=== PATIENT | male | born 1995 | race Caucasian/White ===

== ENCOUNTER 2018-01-12 18:38 | Emergency (ER) | payer OTHER ==
[~2018-01-12] VITALS: Ht 165.1 cm; Wt 68.9 kg
[2018-01-12 18:48] VITALS: BP 132/65
--- NOTE | 2018-01-12 18:55 | NUR ---
pt to lobby in stable condition with mother
--- NOTE | 2018-01-12 19:20 | NUR ---
PATIENT PRESENTS TO ED WITH C/O DIZZINES, CP, +NAUSEA S/P INGESTION OF "EATABLE BROWNIE CONTAINING MARIJUANA" AT 1500 TODAY WHILE AT FRIENDS HOUSE . PT STATES "THIS WAS FIRST TIME EATING/INGESTING MARIJUANA . DENIES V/D; EKG COMPLETED PRIOR TO CONTACT AT TRIAGE. PATIENT HR 110'S ST ON CM, PATIENT STATES MILD CP, RADIATING TO THE HEAD, 6/10. SKIN IS PINK/WARM/DRY; AAOX4 WITH EVEN AND STEADY GAIT; LUNGS CLEAR BL; PT DENIES ANY FEVER, SOB, OR COUGH AT THIS TIME; PATIENT STATES PAIN OF 6/10 AT THIS TIME; PATIENT POSITIONED FOR COMFORT; HOB ELEVATED; BEDRAILS UP X2; BED DOWN. ER MD MADE AWARE OF PT STATUS. PATIENTS MOM AT BEDSIDE. WILL CONTINUE TO MONITOR
--- NOTE | 2018-01-12 19:25 | NUR ---
Patient being evaluated by physician at bedside.
[2018-01-12 22:54] LABS: BARBITURATE, URINE NEG. ng/ml (NEG <=200); BENZODIAZEPINE, URINE NEG. ng/mL (NEG <=200); CANNABINOID, URINE POS. ng/mL (NEG <=50); COCAINE, URINE NEG. ng/mL (NEG <=300); OPIATE, URINE NEG. ng/mL (NEG <=2000); PHENCYCLIDINE SCREEN,URINE NEG. ng/mL (NEG <=25)
[2018-01-12 23:15] VITALS: BP 110/74
--- NOTE | 2018-01-12 23:15 | NUR ---
Patient discharged with v/s stable. Written and verbal after care instructions given and explained. Patient verbalized understanding. Ambulatory with steady gait. All questions addressed prior to discharge. Advised to follow up with PMD.
== END 2018-01-12 23:15 | disposition home or self-care (01) ==
LOC: MED 18:38
DX: R07.89 Other chest pain (principal); T40.7X5A Adverse effect of cannabis (derivatives), initial encounter; Y92.89 Other specified places as the place of occurrence of the external cause
CPT/HCPCS: 80305; 93005; 99285

== ENCOUNTER 2019-06-11 07:41 | Emergency (ER) | payer MEDICAID, OTHER ==
[~2019-06-11] VITALS: Ht 170.2 cm; Wt 77.1 kg
--- NOTE | 2019-06-11 07:48 | NUR ---
AMBULATED TO BED 3
[2019-06-11 07:51] VITALS: BP 160/98
--- NOTE | 2019-06-11 07:54 | NUR ---
23 Y/O MALE C/O LOWER ABD CRAMPING, NON RADIATING X 3 DAYS. DENIES N/V/D. STATES HE HAS HAD CHANGE IN APPETITE WITH A FEELING OF BLOATING. ABD SOFT, FLAT, NON TENDER TO PALP. BOWEL SOUNDS PRESENT X 4 QUAD. 7/10 CONSTANT CRAMPING PAIN. HAS NOT TAKEN ANY MEDICATION. HOB ELEVATED, X 1 SIDE RAIL RAISED. RR EVEN AND UNLABORED. VSS MEDHX: DENIES ALLERIGES: NKA
--- NOTE | 2019-06-11 08:15 | NUR ---
PT TO RADIOLOGY VIA WHEELCHAIR
[2019-06-11 09:16] VITALS: BP 160/98
--- NOTE | 2019-06-11 09:16 | NUR ---
Patient discharged with v/s stable. Written and verbal after care instructions given and explained. Patient alert, oriented and verbalized understanding of instructions. Ambulatory with steady gait. All questions addressed prior to discharge. ID band removed. Patient advised to follow up with PMD. Rx of MIRALAX POWDER AND MINERAL OIL given. Patient educated on indication of medication including possible reaction and side effects. Opportunity to ask questions provided and answered.
== END 2019-06-11 09:16 | disposition home or self-care (01) ==
LOC: MED 07:41
DX: K59.00 Constipation, unspecified (principal); M54.9 Dorsalgia, unspecified; Z98.890 Other specified postprocedural states
CPT/HCPCS: 74022; 99283